=== PATIENT | female | born 1960 | race Two or more races ===

== ENCOUNTER → 2016-10-14 | Day surgery (SDC) | payer OTHER ==
[~2016-10-14] MED LIST: HYDROCHLOROTH12.5 MG PO; NO MEDICATIONS; VOLTAREN50 MG PO
--- NOTE | ~2016-10-14 | OR ---
Unit #: [id number] #: [id number] Patient: JESUS ROMERO [id number] [address] [address] [id number] O MR#: [id number] NAME: JESUS ROMERO ROOM: Date of Procedure: 10/14/2016 Admission Date: 10/14/2016 Surgeon: David Elder M.D. : 1960 Attending Physician: David Elder M.D. Primary Care Physician: Zarina Banerjee A.P.R.N. OPERATIVE REPORT PREOPERATIVE DIAGNOSIS Screening colonoscopy. POSTOPERATIVE DIAGNOSIS Screening colonoscopy. PROCEDURE PERFORMED Colonoscopy to cecum. ANESTHESIA Monitored anesthesia care. FINDINGS The patient had normal colonoscopy other than moderate internal hemorrhoids. SPECIMENS None. COMPLICATIONS None apparent. CONDITION The patient tolerated the procedure well. INDICATIONS FOR PROCEDURE The patient is a 56-year-old female, who presents at this time for screening colonoscopy. DESCRIPTION OF PROCEDURE After obtaining informed consent from her vocalic battery hand named Татьяна, the patient was brought to the endoscopy suite and after adequate monitored anesthesia care, had the colonoscope placed through the anus and slowly advanced to the level of the cecum without difficulty and with the lumen always in view. The cecum was normal as was the ileocecal valve. The ascending colon was normal as was the hepatic flexure, transverse colon, splenic flexure, descending colon, sigmoid colon, and rectum. On retroflexing in the rectum to the anorectal junction, the patient was found to have some moderate internal hemorrhoids. The scope was removed without difficulty. The patient tolerated the procedure well and went from the endoscopy suite to the recovery area in stable condition. Unit #: [id number] #: [id number] Patient: JESUS ROMERO RECOMMENDATIONS High-fiber diet, lots of liquids, tucks or wipes p.r.n. Follow up as needed. Dictated by... Shae Johnson/denissel TD: 10/14/2016 08:03 JOB #: [id number] CC: [facility] OPERATIVE REPORT Page 1 of 1 X David Elder MD PROCEDURE OPERATIVE NOTE
== END | disposition home or self-care (01) ==
LOC: COPS 05:43
DX: Z12.11 Encounter for screening for malignant neoplasm of colon (principal); K64.8 Other hemorrhoids; I10 Essential (primary) hypertension; J45.909 Unspecified asthma, uncomplicated; Z80.0 Family history of malignant neoplasm of digestive organs; Z79.899 Other long term (current) drug therapy; Z90.49 Acquired absence of other specified parts of digestive tract; Z90.710 Acquired absence of both cervix and uterus; Z98.51 Tubal ligation status; Z98.890 Other specified postprocedural states
CPT/HCPCS: J2250